=== PATIENT | male | born 1980 | race Caucasian/White ===

== ENCOUNTER 2017-09-03 08:42 | Emergency (ER) | payer BC ==
[2017-09-03 08:46] VITALS: PULSE 84; RESP 16; TEMP 97.6
--- NOTE | 2017-09-03 08:54 | ED ---
General Adult HPI - General Chief complaint: ENT Stated complaint: Swollen neck Time Seen by Provider: 09/03/17 08:47 Source: patient, RN notes reviewed Mode of arrival: ambulatory Limitations: no limitations - History of Present Illness Initial comments: 37-year-old male presents to the emergency department with a chief complaint of right-sided lymph node swelling. He states it started last night. He became concerned. He states is very tender lymph node on the right. He has had a very recent cough cold runny nose like symptoms. No high fevers. No difficulty breathing. No difficulty swallowing. Patient states she was concerned due to the pain she thought that he should be seen. There is been no nausea vomiting. Patient states is not currently having any other symptoms at this time.Patient denies any recent fever, chills, shortness of breath, chest pain, back pain, abdominal pain, nausea vomiting, numbness or tingling, dysuria or hematuria, constipation or diarrhea, headaches or visual changes, or any other current symptoms. - Related Data Previous Rx's Medication Instructions Recorded Azithromycin [Zithromax] 250 mg PO DIRECTED #6 tab 09/03/17 Ibuprofen [Motrin] 600 mg PO Q6HR PRN #20 tab 09/03/17 Allergies Allergy/AdvReac Type Severity Reaction Status Date / Time Penicillins Allergy Rash/Hives Verified 09/03/17 08:46 Review of Systems ROS Statement: Those systems with pertinent positive or pertinent negative responses have been documented in the HPI. ROS Other: All systems not noted in ROS Statement are negative. Past Medical History Past Medical History: No Reported History History of Any Multi-Drug Resistant Organisms: None Reported Past Surgical History: Orthopedic Surgery Additional Past Surgical History / Comment(s): knee Past Psychological History: No Psychological Hx Reported Smoking Status: Never smoker Past Alcohol Use History: Rare Past Drug Use History: None Reported General Exam - General Exam Comments Initial Comments: General exam: Alert, active, comfortable in no apparent distress Head: Normocephalic Eyes: Normal reaction of pupils, equal size, normal range of extraocular motion Ears: normal external ear canals, pink tympanic membranes with normal cone of light Nose: clear with pink turbinates Throat: no erythema or exudates with normal sized tonsils Neck: no masses, no nuchal rigidity, some unknown to the right anterior cervical. Chest: no chest wall deformity Lungs: equal air entry with no crackles or wheeze CVS: S1 and S2 normal with no audible mumurs, regular rhythm Abdomen: no hepatosplenomegaly, normal bowel sounds, no guarding or rigidity Spine: no scoliosis or deformity Skin: no rashes Neurological: No focal deficits, tone is normal in all 4 extremities Limitations: no limitations Course Vital Signs 09/03/17 08:43 Temperature 97.6 F Pulse Rate 84 Respiratory 16 Rate Blood Pressure 155/101 O2 Sat by Pulse 96 Oximetry Medical Decision Making - Medical Decision Making 37-year-old male presents for tender swollen lymphadenopathy. At this time the patient was on antibiotics. We did discuss follow-up we discussed return parameters all questions. Patient family stated they understood and they are in agreement. All questions have been answered. This time they will be discharged. Disposition Clinical Impression: Anterior cervical lymphadenopathy Disposition: HOME SELF-CARE Condition: Stable Instructions: Lymphadenopathy (ED) Additional Instructions: Please use medication as discussed. Please follow up with family doctor if symptoms have not improved over the next two days. Please return to the emergency room if your symptoms increase or worsen or for any other concerns. Prescriptions: Azithromycin [Zithromax] 250 mg PO DIRECTED #6 tab Ibuprofen [Motrin] 600 mg PO Q6HR PRN #20 tab PRN Reason: Pain Referrals: [facility],Clinic [Primary Care Provider] - 1-2 days Time of Disposition: 08:53
[2017-09-03 09:09] VITALS: BP 149/92
== END 2017-09-03 09:09 | disposition home or self-care (01) ==
LOC: EC 08:42
DX: R59.0 Localized enlarged lymph nodes (principal); Z88.0 Allergy status to penicillin
CPT/HCPCS: 99283

== ENCOUNTER 2018-09-26 18:09 | Emergency (ER) | payer BC ==
[2018-09-26 18:14] VITALS: TEMP 98
[2018-09-26] MEDS ORDERED: hydrALAZINE HCL 20 MG/ML 1 ML VIAL IVP STA (18:33)
--- NOTE | 2018-09-26 18:37 | ED ---
General Adult HPI - General Chief complaint: Recheck/Abnormal Lab/Rx Stated complaint: High BP Time Seen by Provider: 09/26/18 18:10 Source: patient, RN notes reviewed Mode of arrival: ambulatory Limitations: no limitations - History of Present Illness Initial comments: This is a 38-year-old male presents emergency Department complaining that his blood pressures been high in the last couple of days. Patient states she was recently diagnosed with high blood pressure and started on metoprolol. Patient states he takes his blood pressure or Reglan over the last few days it has been elevated. Patient states on a couple of occasions when it was elevated he noticed some facial flushing but he had no headache no blurred vision. Patient denies any chest pain palpitations difficulty breathing first breath. Patient states the more he takes it more anxious he gets because he has a history of anxiety's on no medications for that. Patient denies any recent fever chills or cough. Patient denies any excessive coffee intake. - Related Data Home Medications Medication Instructions Recorded Confirmed Metoprolol Tartrate 25 mg PO BID 09/26/18 09/26/18 Previous Rx's Medication Instructions Recorded ALPRAZolam [Xanax] 0.25 mg PO BID PRN 3 Days #6 tab 09/26/18 Allergies Allergy/AdvReac Type Severity Reaction Status Date / Time Penicillins Allergy Rash/Hives Verified 09/26/18 18:35 Review of Systems ROS Statement: Those systems with pertinent positive or pertinent negative responses have been documented in the HPI. ROS Other: All systems not noted in ROS Statement are negative. Past Medical History Past Medical History: No Reported History History of Any Multi-Drug Resistant Organisms: None Reported Past Surgical History: Orthopedic Surgery Additional Past Surgical History / Comment(s): knee Past Psychological History: No Psychological Hx Reported Smoking Status: Never smoker Past Alcohol Use History: Rare Past Drug Use History: None Reported General Exam - General Exam Comments Initial Comments: GENERAL: Patient is well-developed and well-nourished. Patient is nontoxic and well- hydrated and is in mild distress. ENT: Neck is soft and supple. No significant lymphadenopathy is noted. Oropharynx is clear. Moist mucous membranes. Neck has full range of motion without el iciting any pain. EYES: The sclera were anicteric and conjunctiva were pink and moist. Extraocular movements were intact and pupils were equal round and reactive to light. Eyelids were unremarkable. PULMONARY: Unlabored respirations. Good breath sounds bilaterally. No audible rales rhonchi or wheezing was noted. CARDIOVASCULAR: There is a regular rate and rhythm without any murmurs gallops or rubs. ABDOMEN: Soft and nontender with normal bowel sounds. No palpable organomegaly was not ed. There is no palpable pulsatile mass. SKIN: Skin is clear with no lesions or rashes and otherwise unremarkable. NEUROLOGIC: Patient is alert and oriented x3. Cranial nerves II through XII are grossly intact. Motor and sensory are also intact. Normal speech, volume and content. Symmetrical smile. MUSCULOSKELETAL: Normal extremities with adequate strength and full range of motion. No lower extremity swelling or edema. No calf tenderness. LYMPHATICS: No significant lymphadenopathy is noted PSYCHIATRIC: Normal psychiatric evaluation. Limitations: no limitations Course Vital Signs 09/26/18 09/26/18 09/26/18 18:12 18:56 19:41 Temperature 98 F Pulse Rate 84 83 Respiratory 18 16 Rate Blood Pressure 173/104 150/96 142/93 O2 Sat by Pulse 97 Oximetry Medical Decision Making - Medical Decision Making EKG shows normal sinus rhythm at 83 bpm TX interval 160 QRS 92 QT interval 386 QTC is 453 per patient's EKG shows no ST segment elevation or depression. Her patient was given hydralazine. Pressure down and 1 of Ativan because he states he was very anxious. - Lab Data Result diagrams: 09/26/18 18:38 09/26/18 18:38 Lab Results 09/26/18 09/26/18 Range/Units 18:38 18:38 WBC 8.4 (3.8-10.6) k/uL RBC 5.29 (4.30-5.90) m/uL Hgb 15.8 (13.0-17.5) gm/dL Hct 46.5 (39.0-53.0) % MCV 87.8 (80.0-100.0) fL MCH 29.9 (25.0-35.0) pg MCHC 34.0 (31.0-37.0) g/dL RDW 12.7 (11.5-15.5) % Plt Count 236 (150-450) k/uL Neutrophils % 50 % Lymphocytes % 38 % Monocytes % 6 % Eosinophils % 4 % Basophils % 1 % Neutrophils # 4.2 (1.3-7.7) k/uL Lymphocytes # 3.1 (1.0-4.8) k/uL Monocytes # 0.5 (0-1.0) k/uL Eosinophils # 0.3 (0-0.7) k/uL Basophils # 0.1 (0-0.2) k/uL Sodium 140 (137-145) mmol/L Potassium 3.8 (3.5-5.1) mmol/L Chloride 106 (98-107) mmol/L Carbon Dioxide 24 (22-30) mmol/L Anion Gap 10 mmol/L BUN 23 H (9-20) mg/dL Creatinine 0.94 (0.66-1.25) mg/dL Est GFR (CKD-EPI)AfAm >90 (>60 ml/min/1.73 sqM) Est GFR (CKD-EPI)NonAf >90 (>60 ml/min/1.73 sqM) Glucose 89 (74-99) mg/dL Calcium 10.3 H (8.4-10.2) mg/dL Total Bilirubin 0.6 (0.2-1.3) mg/dL AST 30 (17-59) U/L ALT 54 (21-72) U/L Alkaline Phosphatase 64 (38-126) U/L Total Protein 8.0 (6.3-8.2) g/dL Albumin 4.6 (3.5-5.0) g/dL Disposition Clinical Impression: Essential hypertension Disposition: HOME SELF-CARE Condition: Good Instructions (If sedation given, give patient instructions): Hypertension (ED) Additional Instructions: Patient should increase his metoprolol to one and a half pills twice a day Prescriptions: ALPRAZolam [Xanax] 0.25 mg PO BID PRN 3 Days #6 tab PRN Reason: Anxiety Is patient prescribed a controlled substance at d/c from ED?: No Referrals: [facility],Clinic [Primary Care Provider] - 1-2 days Time of Disposition: 19:34
[2018-09-26] MEDS ORDERED: LORazepam 2 MG/ML INJ IV STA (18:39)
[2018-09-26 18:48] LABS: Basophils # (A) 0.1 k/uL (0-0.2); Basophils % (A) 1 %; Eosinophils # (A) 0.3 k/uL (0-0.7); Eosinophils % (A) 4 %; HCT 46.5 % (39.0-53.0); HGB 15.8 gm/dL (13.0-17.5); Lymphocytes # (A) 3.1 k/uL (1.0-4.8); Lymphocytes % (A) 38 %; MCH 29.9 pg (25.0-35.0); MCV 87.8 fL (80.0-100.0); Mean Platelet Volume 7.7; Monocytes # (A) 0.5 k/uL (0-1.0); Monocytes % (A) 6 %; Neutrophils # (A) 4.2 k/uL (1.3-7.7); Neutrophils % (A) 50 %; Platelet Count 236 k/uL (150-450); RBC 5.29 m/uL (4.30-5.90); RDW 12.7 % (11.5-15.5); WBC 8.4 k/uL (3.8-10.6)
[2018-09-26 18:59] LABS: ALT 54 U/L (21-72); AST 30 U/L (17-59); Albumin 4.6 g/dL (3.5-5.0); Alkaline Phosphatase 64 U/L (38-126); Anion Gap 10 mmol/L; Blood Urea Nitrogen 23 mg/dL (9-20); Calcium 10.3 mg/dL (8.4-10.2); Carbon Dioxide 24 mmol/L (22-30); Chloride 106 mmol/L (98-107); Glucose 89 mg/dL (74-99); Potassium 3.8 mmol/L (3.5-5.1); Sodium 140 mmol/L (137-145); Total Bilirubin 0.6 mg/dL (0.2-1.3)
[2018-09-26 19:41] VITALS: BP 142/93; PULSE 83; RESP 16
== END 2018-09-26 20:10 | disposition home or self-care (01) ==
LOC: EC 18:09
DX: I10 Essential (primary) hypertension (principal); Z79.899 Other long term (current) drug therapy; Z88.0 Allergy status to penicillin
CPT/HCPCS: 36415; 80053; 85025; 93005; 96374; 96375; 99283

== ENCOUNTER 2019-08-17 17:22 | Inpatient (IN) | payer BC ==
[2019-08-17] MEDS ORDERED: ONDANSETRON 4 MG/2 ML VIAL IVP STA (17:36)
[2019-08-17] MEDS ORDERED: SODIUM CHLORIDE 0.9% 1,000 ML IV STA ×2 (17:36→19:17)
--- NOTE | 2019-08-17 18:37 | ED ---
General Adult HPI - General Chief complaint: Nausea/Vomiting/Diarrhea Stated complaint: poss dehydration Time Seen by Provider: 08/17/19 17:36 Source: patient Mode of arrival: ambulatory Limitations: no limitations - History of Present Illness Initial comments: Dictation was produced using [employer] dictation software. please excuse any grammatical, word or spelling errors. Chief Complaint: 38-year-old male presents with 2 days of nausea vomiting and diarrhea. History of Present Illness: 38-year-old male he has past medical history of hypertension. Patient reports that since yesterday's been having diarrhea. Patient has had too many episodes to count. States that after eating [employer] he began having symptoms. He did have an episode of nonbilious nonbloody emesis. He states that his diarrhea is nonbilious not bloody. Patient also complains of some mild left-sided flank pain. States the pain is shifting from the left to the right flank. Patient also has been having constitutional symptoms. There has been cold symptoms that affected his and child. Patient is complaining of some mild left lower quadrant abdominal tenderness. He has no history of diverticulitis. He has no other history of surgery except for knee surgery. The ROS documented in this emergency department record has been reviewed and confirmed by me. Those systems with pertinent positive or negative responses have been documented in the HPI. All other systems are other negative and/or noncontributory. PHYSICAL EXAM: General Impression: Alert and oriented x3, not in acute distress HEENT: Normocephalic atraumatic, extra-ocular movements intact, pupils equal and reactive to light bilaterally, mucous membranes moist. Cardiovascular: Heart regular rate and rhythm, S1&S2 audible, no murmurs, rubs or gallops Chest: Lungs clear to auscultation bilaterally, no rhonchi, no wheeze, no rales Abdomen: Mild tenderness to the left lower quadrant Musculoskeletal: Pulses present and equal in all extremities, no peripheral edema Motor: no focal deficits noted Neurological: CN II-XII grossly intact, no focal motor or sensory deficits noted Skin: Intact with no visualized rashes Psych: Normal affect and mood ED course: 38-year-old male presents with enteritis symptoms and fever. All signs upon arrival shows temperature 100.3, heart rate of 110, worse vital signs within acceptable limits. Patient has diarrhea however has no abdominal cramping. He has some mild flank pain that sometimes certainty back pain. He is basically vague back symptoms. Laboratory evaluation obtained. CBC unremarkable. No leukocytosis. Metabolic panel shows mild acidosis and prerenal azotemia. Urinalysis is negative. Influenza test is negative. CRP is elevated at 34.1 however his ESR is 3. Computed tomography scan of the abdomen and pelvis was obtained showing no acute processes. Chest x-ray is nonacute. Patient does not have any overwhelming localizing symptoms. This point is not entirely clear what's causing patient's symptoms and vital signs. Patient treated with broad-spectrum antibiotics. Patient be admitted with consultation from infectious disease. - Related Data Home Medications Medication Instructions Recorded Confirmed Metoprolol Tartrate 25 mg PO BID 09/26/18 08/17/19 Lisinopril-Hctz 20-12.5 mg 1 tablet PO DAILY 08/17/19 08/17/19 [Zestoretic 20-12.5] lamoTRIgine [lamoTRIgine ER] 50 mg PO HS 08/17/19 08/17/19 Previous Rx's Medication Instructions Recorded ALPRAZolam [Xanax] 0.25 mg PO BID PRN 3 Days #6 tab 09/26/18 Allergies Allergy/AdvReac Type Severity Reaction Status Date / Time Penicillins Allergy Rash/Hives Verified 08/17/19 17:28 Review of Systems ROS Statement: Those systems with pertinent positive or pertinent negative responses have been documented in the HPI. ROS Other: All systems not noted in ROS Statement are negative. Past Medical History Past Medical History: Hypertension History of Any Multi-Drug Resistant Organisms: None Reported Past Surgical History: Orthopedic Surgery Additional Past Surgical History / Comment(s): knee Past Psychological History: PTSD Smoking Status: Never smoker Past Alcohol Use History: Occasional Past Drug Use History: None Reported General Exam Limitations: no limitations Course Vital Signs 08/17/19 08/17/19 08/17/19 17:27 18:23 19:19 Temperature 100.3 F H 102.1 F H Pulse Rate 128 H 110 H 110 H Respiratory 18 16 17 Rate Blood Pressure 130/88 133/96 132/89 O2 Sat by Pulse 96 98 96 Oximetry 08/17/19 08/17/19 20:16 21:31 Temperature 101.2 F H Pulse Rate 103 H 105 H Respiratory 18 18 Rate Blood Pressure 122/75 119/74 O2 Sat by Pulse 95 95 Oximetry Medical Decision Making - Lab Data Result diagrams: 08/17/19 18:05 08/17/19 18:05 Lab Results 08/17/19 08/17/19 08/17/19 Range/Units 18:05 18:05 18:05 WBC 9.6 (3.8-10.6) k/uL RBC 5.68 (4.30-5.90) m/uL Hgb 17.2 (13.0-17.5) gm/dL Hct 50.2 (39.0-53.0) % MCV 88.4 (80.0-100.0) fL MCH 30.2 (25.0-35.0) pg MCHC 34.2 (31.0-37.0) g/dL RDW 12.6 (11.5-15.5) % Plt Count 233 (150-450) k/uL Neutrophils % 86 % Lymphocytes % 7 % Monocytes % 4 % Eosinophils % 1 % Basophils % 1 % Neutrophils # 8.3 H (1.3-7.7) k/uL Lymphocytes # 0.7 L (1.0-4.8) k/uL Monocytes # 0.4 (0-1.0) k/uL Eosinophils # 0.1 (0-0.7) k/uL Basophils # 0.1 (0-0.2) k/uL ESR (0-15) mm/hr Sodium 136 L (137-145) mmol/L Potassium 4.1 (3.5-5.1) mmol/L Chloride 104 (98-107) mmol/L Carbon Dioxide 21 L (22-30) mmol/L Anion Gap 11 mmol/L BUN 25 H (9-20) mg/dL Creatinine 1.07 (0.66-1.25) mg/dL Est GFR (CKD-EPI)AfAm >90 (>60 ml/min/1.73 sqM) Est GFR (CKD-EPI)NonAf 90 (>60 ml/min/1.73 sqM) Glucose 135 H (74-99) mg/dL Calcium 9.6 (8.4-10.2) mg/dL Total Bilirubin 0.7 (0.2-1.3) mg/dL AST 30 (17-59) U/L ALT 34 (4-49) U/L Alkaline Phosphatase 57 (38-126) U/L C-Reactive Protein (<10.0) mg/L Total Protein 8.1 (6.3-8.2) g/dL Albumin 4.8 (3.5-5.0) g/dL Lipase (23-300) U/L Urine Color Urine Appearance (Clear) Urine pH (5.0-8.0) Ur Specific Union (1.001-1.035) Urine Protein (Negative) Urine Glucose (UA) (Negative) Urine Ketones (Negative) Urine Blood (Negative) Urine Nitrite (Negative) Urine Bilirubin (Negative) Urine Urobilinogen (<2.0) mg/dL Ur Leukocyte Esterase (Negative) Urine WBC (0-5) /hpf Ur Squamous Epith Cells (0-4) /hpf Urine Mucus (None) /hpf Influenza Type A RNA Not Detected (Not Detectd) Influenza Type B (PCR) Not Detected (Not Detectd) 08/17/19 08/17/19 08/17/19 Range/Units 18:05 18:05 21:25 WBC (3.8-10.6) k/uL RBC (4.30-5.90) m/uL Hgb (13.0-17.5) gm/dL Hct (39.0-53.0) % MCV (80.0-100.0) fL MCH (25.0-35.0) pg MCHC (31.0-37.0) g/dL RDW (11.5-15.5) % Plt Count (150-450) k/uL Neutrophils % % Lymphocytes % % Monocytes % % Eosinophils % % Basophils % % Neutrophils # (1.3-7.7) k/uL Lymphocytes # (1.0-4.8) k/uL Monocytes # (0-1.0) k/uL Eosinophils # (0-0.7) k/uL Basophils # (0-0.2) k/uL ESR 3 (0-15) mm/hr Sodium (137-145) mmol/L Potassium (3.5-5.1) mmol/L Chloride (98-107) mmol/L Carbon Dioxide (22-30) mmol/L Anion Gap mmol/L BUN (9-20) mg/dL Creatinine (0.66-1.25) mg/dL Est GFR (CKD-EPI)AfAm (>60 ml/min/1.73 sqM) Est GFR (CKD-EPI)NonAf (>60 ml/min/1.73 sqM) Glucose (74-99) mg/dL Calcium (8.4-10.2) mg/dL Total Bilirubin (0.2-1.3) mg/dL AST (17-59) U/L ALT (4-49) U/L Alkaline Phosphatase (38-126) U/L C-Reactive Protein 34.1 H (<10.0) mg/L Total Protein (6.3-8.2) g/dL Albumin (3.5-5.0) g/dL Lipase 63 (23-300) U/L Urine Color Yellow Urine Appearance Clear (Clear) Urine pH 6.0 (5.0-8.0) Ur Specific [place] 1.038 H (1.001-1.035) Urine Protein 1+ H (Negative) Urine Glucose (UA) Negative (Negative) Urine Ketones Negative (Negative) Urine Blood Negative (Negative) Urine Nitrite Negative (Negative) Urine Bilirubin Negative (Negative) Urine Urobilinogen <2.0 (<2.0) mg/dL Ur Leukocyte Esterase Negative (Negative) Urine WBC <1 (0-5) /hpf Ur Squamous Epith Cells <1 (0-4) /hpf Urine Mucus Many H (None) /hpf Influenza Type A RNA (Not Detectd) Influenza Type B (PCR) (Not Detectd) Disposition Clinical Impression: SIRS (systemic inflammatory response syndrome) Disposition: ADMITTED IP TO THIS [facility] Condition: Fair Referrals: Nazario Wilkes DO [Primary Care Provider] - 1-2 days Decision Time: 23:22
[2019-08-17 18:53] LABS: Basophils # (A) 0.1 k/uL (0-0.2); Basophils % (A) 1 %; Eosinophils # (A) 0.1 k/uL (0-0.7); Eosinophils % (A) 1 %; HCT 50.2 % (39.0-53.0); HGB 17.2 gm/dL (13.0-17.5); Lymphocytes # (A) 0.7 k/uL (1.0-4.8); Lymphocytes % (A) 7 %; MCH 30.2 pg (25.0-35.0); MCHC 34.2 g/dL (31.0-37.0); MCV 88.4 fL (80.0-100.0); Mean Platelet Volume 8.7; Monocytes # (A) 0.4 k/uL (0-1.0); Monocytes % (A) 4 %; Neutrophils # (A) 8.3 k/uL (1.3-7.7); Neutrophils % (A) 86 %; Platelet Count 233 k/uL (150-450); RBC 5.68 m/uL (4.30-5.90); RDW 12.6 % (11.5-15.5); WBC 9.6 k/uL (3.8-10.6)
--- NOTE | 2019-08-17 19:00 | CT ---
EXAMINATION TYPE: CT abdomen pelvis w con DATE OF EXAM: 08/17/2019 COMPARISON: None HISTORY: Left sided abdominal pain, fever and diarrhea. CT DLP: 1911.8 mGycm Automated exposure control for dose reduction was used. CONTRAST: Performed with IV Contrast, patient injected with 100ml mL of Isovue 300. Multiple axial sections were obtained from the diaphragm to the floor the pelvis with intravenous con trast Lung bases are clear. There is no pleural effusion. Heart size is normal. There is no pericardial eff usion. Stomach is intact. Liver spleen pancreas gallbladder appear normal. Bile ducts are not dilated . There is no adrenal mass. Kidneys show satisfactory contrast opacification. There is no hydronephrosi s. There is no retroperitoneal adenopathy. Bladder distends smoothly. There is no free fluid in the p savita. There is no inguinal hernia. The ureters are not dilated. Appendix is posterior and medial and appears normal. There is no mesenteric edema. There is no ascites or free air. There is no sign of a bowel obstructio n. The lumbar vertebra have normal alignment. Posterior elements are intact. Bony pelvis is intact. Hip joints appear normal. Sacroiliac joints are normal. IMPRESSION: Normal appendix. No evidence of renal stone or obstruction. I do not see a cause for left-sided pain.
[2019-08-17 19:07] LABS: ALT 34 U/L (4-49); AST 30 U/L (17-59); African American GFR (CKD) >90 (>60 ml/min/1.73 sqM); Albumin 4.8 g/dL (3.5-5.0); Alkaline Phosphatase 57 U/L (38-126); Anion Gap 11 mmol/L; Blood Urea Nitrogen 25 mg/dL (9-20); Calcium 9.6 mg/dL (8.4-10.2); Carbon Dioxide 21 mmol/L (22-30); Chloride 104 mmol/L (98-107); Glucose 135 mg/dL (74-99); Non-African American GFR(CKD) 90 (>60 ml/min/1.73 sqM); Potassium 4.1 mmol/L (3.5-5.1); Sodium 136 mmol/L (137-145); Total Bilirubin 0.7 mg/dL (0.2-1.3); Total Protein 8.1 g/dL (6.3-8.2)
[2019-08-17] MEDS ORDERED: KETOROLAC 30 MG/ML 1 ML VIAL IVP STA (19:09)
[2019-08-17 19:27] LABS: Appearance,Urine Clear (Clear); Bilirubin,Urine Negative (Negative); Blood,Urine Negative (Negative); Color,Urine Yellow; Glucose,Urine (UA) Negative (Negative); Ketones,Urine Negative (Negative); Leukocyte Esterase,Urine Negative (Negative); Mucus,Urine Many /hpf; Nitrite,Urine Negative (Negative); Protein,Urine 1+ (Negative); Specific Gravity,Urine 1.038 (1.001-1.035); Squamous Epithelial Cell,Urine <1 /hpf (0-4); Urobilinogen,Urine <2.0 mg/dL (<2.0); WBC,Urine <1 /hpf (0-5)
[2019-08-17] MEDS ORDERED: VANCOMYCIN IV PER PHARMACY 1 EACH MISC MISCELLANE PRN (19:55)
[2019-08-17] MEDS ORDERED: CEFEPIME 2 GM in SODIUM CHLORIDE 0.9% 100 ML IVPB STA (19:55)
--- NOTE | 2019-08-17 20:03 | XR ---
EXAMINATION TYPE: XR chest 2V DATE OF EXAM: 08/17/2019 COMPARISON: NONE HISTORY: Fever TECHNIQUE: FINDINGS: Heart and mediastinum are normal. Lungs are clear of infiltrate. There is no pleural effusi on. There are small calcified granulomata in the left lower lobe. IMPRESSION: No cardiopulmonary disease. Normal heart.
[2019-08-17] MEDS ORDERED: lamoTRIgine 25 MG TAB PO ONE (20:07)
[2019-08-17] MEDS ORDERED: METOPROLOL TARTRATE 25 MG TAB PO STA (20:08)
[2019-08-17] MEDS ORDERED: VANCOMYCIN 2,250 MG in SODIUM CHLORIDE 0.9% 500 ML 500 ML IVPB ONE (20:15)
[2019-08-17 20:25] LABS: C Reactive Protein 34.1 mg/L (<10.0)
[2019-08-17] MEDS ORDERED: metroNIDAZOLE-NS PMX 500 MG in SALINE 1 100ML.BAG IVPB STA (20:56)
[2019-08-17] MEDS ORDERED: ACETAMINOPHEN TAB 500 MG TAB PO STA (22:37)
[2019-08-17] MEDS ORDERED: NALOXONE 0.4 MG/ML 1 ML VIAL IV PRN (23:22)
[2019-08-17] MEDS ORDERED: ONDANSETRON 4 MG/2 ML VIAL IVP PRN (23:22)
[2019-08-17] MEDS ORDERED: ACETAMINOPHEN TAB 325 MG TAB PO PRN (23:22)
[2019-08-18] MEDS: SODIUM CHLORIDE 0.9% 1,000 ML IV SCH ×2 (00:14→10:44)
[2019-08-18] MEDS ORDERED: VANCOMYCIN 2,000 MG in SODIUM CHLORIDE 0.9% 500 ML 500 ML IVPB SCH (09:00)
[2019-08-18] MEDS ORDERED: LISINOPRIL-HCTZ 20-12.5 MG 1 EACH TAB PO SCH (09:00)
[2019-08-18 12:50] VITALS: BP 127/73; PULSE 78; RESP 17; TEMP 98
[2019-08-18] MEDS ORDERED: metroNIDAZOLE 500 MG TAB PO SCH (16:00)
[2019-08-18] MEDS ORDERED: ALPRAZolam 0.25 MG TAB PO PRN (17:01)
--- NOTE | 2019-08-18 17:12 | P.HPIM ---
History of Present Illness H&P Date: 08/18/19 Chief Complaint: Vomiting diarrhea History of presenting complaint: This is a pleasant [address] Wilkes. Abdi eaten at [employer] to double burgers and 1 back chicken. Later that evening he started getting uncomfortable." Diarrhea. Subsequently went the next day he did quite a bit of vomiting and nausea. Decided to come to the ER. Initially had fever and chills. Given IV fluids admitted for the same. This morning feeling a bit better. Did tolerate a light breakfast. No further diarrhea. and the family was sick. Abdominal pain is greatly improved. Review of systems: GEN.: Tired EYES: None HEENT: None NECK: None RESPIRATORY: None CARDIOVASCULAR: None GASTROINTESTINAL: As above GENITOURINARY: None MUSCULOSKELETAL: None LYMPHATICS: None HEMATOLOGICAL: None PSYCHIATRY: None NEUROLOGICAL: None Past medical history to include: Hypertension, PTSD Social history: *Smoke alcohol occasionally, , works as a printing machinist Family history: Reviewed, noncontributory to presentation Physical examination: VITAL SIGNS: [100.3, 128, 18, 130/88, 96% room air GENERAL: BMI 34.6, sitting up in bed, awake. EYES: Pupils equal. Conjunctiva normal. HEENT: External appearance of nose and ears normal, oral cavity grossly normal. NECK: JVD not raised; masses not palpable. HEART: First and second heart sounds are normal; no edema. LUNGS: Respiratory rate normal; clear to auscultation. ABDOMEN: Soft, nontender, liver spleen not palpable, no masses palpable. PSYCH: Alert and oriented x3; mood and affect normal. NEUROLOGICAL: Cranial nerves grossly intact; no facial asymmetry, power and sensation grossly intact. LYMPHATICS: No lymph nodes palpable in the axilla and neck INVESTIGATIONS, reviewed in the clinical context: White count 9.6-year-old woman 7.2 potassium 4.1 BUN 25 creatinine 1.07 Influenza A and B both not detected Chest x-ray film-clear Computed tomography scan of the abdomen and pelvis-unremarkable Assessment: -Acute bacterial severe gastroenteritis, causing sepsis, POA, likely from food poisoning -Sepsis from above -Essential hypertension -PTSD Plan: Patient this morning is feeling much better. Patient from the ER was started on Flagyl and vancomycin. Also received a dose of cefepime. Patient will pr obably be better served with quinolones and Flagyl orally clinically looking better. Diet is being advanced. Infectious disease, Dr. benson was consulted. Past Medical History Past Medical History: Hypertension History of Any Multi-Drug Resistant Organisms: None Reported Past Surgical History: Orthopedic Surgery Additional Past Surgical History / Comment(s): left knee 2001 Past Anesthesia/Blood Transfusion Reactions: No Reported Reaction Past Psychological History: PTSD Smoking Status: Never smoker Past Alcohol Use History: Occasional Past Drug Use History: None Reported Medications and Allergies Home Medications Medication Instructions Recorded Confirmed Type Metoprolol Tartrate 37.5 mg PO BID 09/26/18 08/17/19 History ALPRAZolam [Xanax] 0.25 mg PO DAILY PRN 08/17/19 08/17/19 History Acetaminophen Tab [Tylenol] 1,000 mg PO TID PRN 08/17/19 08/17/19 History Lisinopril-Hctz 20-12.5 mg 1 tablet PO DAILY 08/17/19 08/17/19 History [Zestoretic 20-12.5] lamoTRIgine [lamoTRIgine ER] 50 mg PO HS 08/17/19 08/17/19 History Ciprofloxacin HCl [Cipro] 500 mg PO Q12H 3 Days #6 tab 08/18/19 Rx metroNIDAZOLE [Flagyl] 500 mg PO Q8HR #10 tab 08/18/19 Rx Allergies Allergy/AdvReac Type Severity Reaction Status Date / Time Penicillins Allergy Rash/Hives Verified 08/17/19 23:28 Physical Exam Vitals: Vital Signs Temp Pulse Pulse Resp BP BP Pulse Ox 08/18/19 05:05 98.3 F 82 16 105/54 95 08/18/19 02:00 98.7 F 95 18 115/62 94 L 08/18/19 00:50 101.1 F H 100 18 110/70 99 08/18/19 00:00 102.1 F H 90 18 116/70 99 08/17/19 21:31 101.2 F H 105 H 18 119/74 95 08/17/19 20:16 103 H 18 122/75 95 08/17/19 19:19 102.1 F H 110 H 17 132/89 96 08/17/19 18:23 110 H 16 133/96 98 08/17/19 17:27 100.3 F H 128 H 18 130/88 96 Intake and Output 08/17/19 08/18/19 08/18/19 22:59 06:59 14:59 Intake Total 590 Balance 590 Intake: Oral 590 Other: Voiding Method Toilet Toilet # Voids 1 Weight 115.666 kg 115.666 kg Results CBC & Chem 7: 08/17/19 18:05 08/17/19 18:05 Labs: Abnormal Lab Results - Last 24 Hours (Table) 08/17/19 08/17/19 08/17/19 Range/Units 18:05 18:05 18:05 Neutrophils # 8.3 H (1.3-7.7) k/uL Lymphocytes # 0.7 L (1.0-4.8) k/uL Sodium 136 L (137-145) mmol/L Carbon Dioxide 21 L (22-30) mmol/L BUN 25 H (9-20) mg/dL Glucose 135 H (74-99) mg/dL C-Reactive Protein (<10.0) mg/L Ur Specific [place] 1.038 H (1.001-1.035) Urine Protein 1+ H (Negative) Urine Mucus Many H (None) /hpf 08/17/19 Range/Units 18:05 Neutrophils # (1.3-7.7) k/uL Lymphocytes # (1.0-4.8) k/uL Sodium (137-145) mmol/L Carbon Dioxide (22-30) mmol/L BUN (9-20) mg/dL Glucose (74-99) mg/dL C-Reactive Protein 34.1 H (<10.0) mg/L Ur Specific [place] (1.001-1.035) Urine Protein (Negative) Urine Mucus (None) /hpf Thrombosis Risk Factor Assmnt - Choose All That Apply Any of the Below Risk Factors Present?: Yes Each Factor Represents 1 point: Obesity (BMI >25) Other Risk Factors: No Other congenital or acquired thrombophilia - If yes, enter type in comment: No Thrombosis Risk Factor Assessment Total Risk Factor Score: 1 Thrombosis Risk Factor Assessment Level: Low Risk
--- NOTE | 2019-08-18 17:14 | P.DS ---
Providers Date of admission: 08/17/19 23:24 Expected date of discharge: 08/18/19 Attending physician: Reed Sosa Consults: 08/17/19 23:26 Consult Physician Routine Consulting Provider: Albert Crespo Consult Reason/Comments: sirs, ro sepsis Do you want consulting provider notified?: Yes Primary care physician: Nazario Wilkes [facility] Course: Chief Complaint: Vomiting diarrhea History of presenting complaint: This is a pleasant [address] Wilkes. Abdi eaten at [employer] to double burgers and 1 back chicken. Later that evening he started getting uncomfortable." Diarrhea. Subsequently went the next day he did quite a bit of vomiting and nausea. Decided to come to the ER. Initially had fever and chills. Given IV fluids admitted for the same. This morning feeling a bit better. Did tolerate a light breakfast. No further diarrhea. and the family was sick. Abdominal pain is greatly improved. Admitted with acute bacterial food poisoning covering acute severe gastroenteritis causing sepsis. Responded well to IV cefepime Flagyl vancomycin. Doing much better this morning. Discussed with ID. Patient can be discharged home. Tolerating a soft diet. Up and about. No asymptomatic. Consultation: Dr. crespo from ID Physical examination: VITAL SIGNS: 98, 78, 17, 127/73, 96% room air GENERAL: BMI 34.6, sitting up in bed, awake. EYES: Pupils equal. Conjunctiva normal. HEENT: External appearance of nose and ears normal, oral cavity grossly normal. NECK: JVD not raised; masses not palpable. HEART: First and second heart sounds are normal; no edema. LUNGS: Respiratory rate normal; clear to auscultation. ABDOMEN: Soft, nontender, liver spleen not palpable, no masses palpable. PSYCH: Alert and oriented x3; mood and affect normal. INVESTIGATIONS, reviewed in the clinical context: White count 9.6-year-old woman 7.2 potassium 4.1 BUN 25 creatinine 1.07 Influenza A and B both not detected Chest x-ray film-clear Computed tomography scan of the abdomen and pelvis-unremarkable Assessment: -Acute bacterial severe gastroenteritis, causing sepsis, POA, likely from food poisoning, improved -Sepsis from above -Essential hypertension -PTSD Disposition: Home Patient Condition at Discharge: Fair Plan - Discharge Summary Discharge Rx Participant: No New Discharge Prescriptions: New Ciprofloxacin HCl [Cipro] 500 mg PO Q12H 3 Days #6 tab metroNIDAZOLE [Flagyl] 500 mg PO Q8HR #10 tab Continue Metoprolol Tartrate 37.5 mg PO BID Lisinopril-Hctz 20-12.5 mg [Zestoretic 20-12.5] 1 tablet PO DAILY lamoTRIgine [lamoTRIgine ER] 50 mg PO HS Acetaminophen Tab [Tylenol] 1,000 mg PO TID PRN PRN Reason: Pain ALPRAZolam [Xanax] 0.25 mg PO DAILY PRN PRN Reason: Anxiety Discharge Medication List Metoprolol Tartrate 37.5 mg PO BID 09/26/18 [History] ALPRAZolam [Xanax] 0.25 mg PO DAILY PRN 08/17/19 [History] Acetaminophen Tab [Tylenol] 1,000 mg PO TID PRN 08/17/19 [History] Lisinopril-Hctz 20-12.5 mg [Zestoretic 20-12.5] 1 tablet PO DAILY 08/17/19 [History] lamoTRIgine [lamoTRIgine ER] 50 mg PO HS 08/17/19 [History] Ciprofloxacin HCl [Cipro] 500 mg PO Q12H 3 Days #6 tab 08/18/19 [Rx] metroNIDAZOLE [Flagyl] 500 mg PO Q8HR #10 tab 08/18/19 [Rx] Follow up Appointment(s)/Referral(s): Nazario Wilkes DO [Primary Care Provider] - 1-2 days (please call the office on Monday to schedule hospital follow-up appointment. Office is currently closed) Patient Instructions/Handouts: Ciprofloxacin (By mouth), Metronidazole (By mouth), Soft Diet (DC), Sepsis (GEN) Activity/Diet/Wound Care/Special Instructions: soft bland diet
[2019-08-18] MEDS ORDERED: METOPROLOL TARTRATE 25 MG TAB PO SCH (21:00)
[2019-08-18] MEDS ORDERED: CIPROFLOXACIN HCL 500 MG TAB PO SCH (21:00)
[2019-08-18] MEDS ORDERED: lamoTRIgine 25 MG TAB PO SCH (21:00)
== END 2019-08-18 16:20 | disposition home or self-care (01) | DRG 872 ==
LOC: EC 17:22 → 5NMEDONC 23:24
PROVIDERS: ADMIT Hospitalist; ATTEND Hospitalist
DX: A41.9 Sepsis, unspecified organism (principal); E87.2 Acidosis; A05.9 Bacterial foodborne intoxication, unspecified; I10 Essential (primary) hypertension; M54.9 Dorsalgia, unspecified; F43.10 Post-traumatic stress disorder, unspecified; Z79.899 Other long term (current) drug therapy; Z88.0 Allergy status to penicillin
CPT/HCPCS: 36415; 71046; 74177; 80053; 81001; 83605; 83690; 84145; 85025; 85652; 86140; 87040; 87045; 87046; 87502; 96361; 96365; 96366; 96367; 96375; 99285

== ENCOUNTER → 2019-12-04 | Outpatient (CLI) | payer BC, OTHER ==
--- NOTE | 2019-12-04 20:36 | ECHOF ---
Referral Reason:R00.2 Palpitations MEASUREMENTS -------- HEIGHT: 182.9 cm WEIGHT: 113.4 kg BP: IVSd: 1.3 cm (0.6 - 1.1) LVIDd: 4.3 cm (3.9 - 5.3) LVPWd: 1.3 cm (0.6 - 1.1) IVSs: 1.6 cm LVIDs: 2.3 cm LVPWs: 1.9 cm RVIDd: 3.1 cm (< 3.3) LAESV Index (A-L): 27.49 ml/m Ao Diam: 3.6 cm (2.0 - 3.7) LA Diam: 3.1 cm (2.7 - 3.8) AV Cusp: 2.9 cm (1.5 - 2.6) EPSS: 0.7 cm MV E Gary: 0.46 m/s MV DecT: 180 ms MV A Gary: 0.49 m/s MV E/A Ratio: 0.94 RAP: 5.00 mmHg RVSP: 14.31 mmHg MV EF SLOPE: 80.73 mm/s (70 - 150) MV EXCURSION: 16.31 mm (> 18.000) TAPSE: 25.97 mm FINDINGS -------- Sinus rhythm. This was a technically good study. The left ventricular size is normal. There is mild concentric left ventricular hypertrophy. Overa ll left ventricular systolic function is normal with, an EF between 55 - 60 %. The diastolic fillin g pattern is normal for the age of the patient 5.15. The right ventricle is normal in size. The right ventricular systolic function is normal. The left atrial size is normal. Normal LA size by volume 22+/-6 ml/m2. The right atrial size is normal. Interatrial and interventricular septum intact. The aortic valve is trileaflet and appears structurally normal. The mitral valve is normal. There is trace mitral regurgitation. The tricuspid valve appears structurally normal. Trace tricuspid regurgitation present. Right rai tricular systolic pressure is normal at < 35 mmHg. Trace/mild (physiologic) pulmonic regurgitation. The aortic root size is normal. Normal inferior vena cava with normal inspiratory collapse consistent with estimated right atrial pre ssure of 5 mmHg. There is no pericardial effusion. CONCLUSIONS -------- 1. Sinus rhythm. 2. This was a technically good study. 3. The left ventricular size is normal. 4. There is mild concentric left ventricular hypertrophy. 5. Overall left ventricular systolic function is normal with, an EF between 55 - 60 %. 6. The diastolic filling pattern is normal for the age of the patient 5.15 7. The right ventricle is normal in size. 8. The right ventricular systolic function is normal. 9. The left atrial size is normal. 10. Normal LA size by volume 22+/-6 ml/m2. 11. The right atrial size is normal. 12. Interatrial and interventricular septum intact. 13. The aortic valve is trileaflet and appears structurally normal. 14. The mitral valve is normal. 15. There is trace mitral regurgitation. 16. The tricuspid valve appears structurally normal. 17. Trace tricuspid regurgitation present. 18. Right ventricular systolic pressure is normal at < 35 mmHg. 19. Trace/mild (physiologic) pulmonic regurgitation. 20. The aortic root size is normal. 21. Normal inferior vena cava with normal inspiratory collapse consistent with estimated right atrial pressure of 5 mmHg. 22. There is no pericardial effusion. [employer] SALES MANAGER: Merly Arana RDCS
== END | disposition home or self-care (01) ==
LOC: RADECHMAIN 08:27
PROVIDERS: ATTEND Family Medicine
DX: I51.7 Cardiomegaly (principal)
CPT/HCPCS: 93306

== ENCOUNTER 2024-11-10 01:57 | Emergency (ER) | payer BC ==
[2024-11-10 02:13] VITALS: RESP 18
--- NOTE | 2024-11-10 02:17 | ED ---
Chest Pain HPI - General Chief Complaint: Chest Pain Stated Complaint: chest tightness Time Seen by Provider: 11/10/24 02:12 Source: patient, RN notes reviewed, old records reviewed Mode of arrival: ambulatory Limitations: no limitations - History of Present Illness Initial Comments: This is a 44-year-old male to the ER for evaluation of chest pain chest pain some shortness of breath symptoms that woke him up from sleep. No fevers no travel history no sick contacts. Patient's symptoms is resolved here in the ER no fevers no shortness of breath no travels or sick contacts Complaint: chest pain -: days(s) Onset: during rest, during exertion Pain Location: substernal, left chest Pain Radiation: LUE Severity: moderate Severity scale (1-10): 4 Quality: tightness Consistency: constant Improves With: nothing Worsens With: nothing Anginal Symptoms: sense of impending doom Other Symptoms: palpitations Treatments Prior to Arrival: none - Related Data Home Medications Medication Instructions Recorded Confirmed Metoprolol Tartrate 37.5 mg PO BID 09/26/18 08/17/19 ALPRAZolam [Xanax] 0.25 mg PO DAILY PRN 08/17/19 08/17/19 Acetaminophen Tab [Tylenol] 1,000 mg PO TID PRN 08/17/19 08/17/19 Lisinopril-Hctz 20-12.5 mg 1 tablet PO DAILY 08/17/19 08/17/19 [Zestoretic 20-12.5] lamoTRIgine [lamoTRIgine ER] 50 mg PO HS 08/17/19 08/17/19 Previous Rx's Medication Instructions Recorded Ciprofloxacin HCl [Cipro] 500 mg PO Q12H 3 Days #6 tab 08/18/19 metroNIDAZOLE [Flagyl] 500 mg PO Q8HR #10 tab 08/18/19 Allergies Allergy/AdvReac Type Severity Reaction Status Date / Time Penicillins Allergy Rash/Hives Verified 11/10/24 02:13 Review of Systems ROS Statement: Those systems with pertinent positive or pertinent negative responses have been documented in the HPI. ROS Other: All systems not noted in ROS Statement are negative. EKG Findings - EKG Comments: EKG Findings:: EKG is sinus 61 VT 181 QRS 115 QTc 450 - EKG Results: EKG: interpreted by [facility] Past Medical History Past Medical History: Hypertension History of Any Multi-Drug Resistant Organisms: None Reported Past Surgical History: Orthopedic Surgery Additional Past Surgical History / Comment(s): left knee 2001 Past Anesthesia/Blood Transfusion Reactions: No Reported Reaction Past Psychological History: Anxiety, PTSD Past Alcohol Use History: Occasional Past Drug Use History: None Reported General Exam Limitations: no limitations General appearance: alert, in no apparent distress Head exam: Present: atraumatic, normocephalic, normal inspection Eye exam: Present: normal appearance, PERRL, EOMI. Absent: scleral icterus, conjunctival injection, periorbital swelling ENT exam: Present: normal exam, mucous membranes moist Neck exam: Present: normal inspection. Absent: tenderness, meningismus, lymphadenopathy Respiratory exam: Present: normal lung sounds bilaterally. Absent: respiratory distress, wheezes, rales, rhonchi, stridor Cardiovascular Exam: Present: regular rate, normal rhythm, normal heart sounds. Absent: systolic murmur, diastolic murmur, rubs, gallop, clicks GI/Abdominal exam: Present: soft, normal bowel sounds. Absent: distended, tenderness, guarding, rebound, rigid Extremities exam: Present: normal inspection, full ROM, normal capillary refill. Absent: tenderness, pedal edema, joint swelling, calf tenderness Back exam: Present: normal inspection Neurological exam: Present: alert, oriented X3, CN II-XII intact Psychiatric exam: Present: normal affect, normal mood Skin exam: Present: warm, dry, intact, normal color. Absent: rash Course Vital Signs 11/10/24 11/10/24 02:08 04:48 Temperature 97.9 F 98.4 F Pulse Rate 68 56 L Respiratory 18 18 Rate Blood Pressure 148/97 118/85 O2 Sat by Pulse 94 L Oximetry - Reevaluation(s) Reevaluation #1: Medical records reviewed Reevaluation #2: Patient's symptoms improved here in the ER no current chest pain Reevaluation #3: Patient informed of results questions answered Reevaluation #4: Was pt. sent in by a medical professional or institution (, PA, DIRECTOR PHARMACEUTICAL, urgent care, hospital, or penitentiary...) When possible be specific @ -no Did you speak to anyone other than the patient for history (EMS, parent, family, police, friend...)? What history was obtained from this source @ -no Did you review nursing and triage notes (agree or disagree)? Why? @ -agree Are old charts reviewed (outside hosp., previous admission, EMS record, old EKG, old radiological studies, urgent care reports/EKG's, penitentiary records)? Report findings @ -yes Differential Diagnosis (chest pain, altered mental status, abdominal pain women, abdominal pain men, vaginal bleeding, weakness, fever, dyspnea, syncope, headache, dizziness, GI bleed, back pain, seizure, CVA, palpatations, mental health, musculoskeletal)? @ -prior EKG interpreted by me (3pts min.). @ -yes X-rays interpreted by me (1pt min.). @ -yes negative for acute disease CT interpreted by me (1pt min.). @ -no U/S interpreted by me (1pt. min.). @ -no What testing was considered but not performed or refused? (CT, X-rays, U/S, labs)? Why? @ -none What meds were considered but not given or refused? Why? @ -none Did you discuss the management of the patient with other professionals (professionals i.e. , PA, DIRECTOR PHARMACEUTICAL, lab, RT, psych nurse, social group worker, filing or registry clerk, teacher, corporate security officer, case specialist)? Give summary @ -no Was smoking cessation discussed for >3mins.? @ -no Was critical care preformed (if so, how long)? @ -no Were there social determinants of health that impacted care today? How? (Homelessness, low income, unemployed, alcoholism, drug addiction, transportation, low edu. Level, literacy, decrease access to med. care, [facility], rehab)? @ -none Was there de-escalation of care discussed even if they declined (Discuss DNR or withdrawal of care, Hospice)? DNR status @ -no What co-morbidities impacted this encounter? (DM, HTN, Smoking, COPD, CAD, Cancer, CVA, ARF, Chemo, Hep., AIDS, mental health diagnosis, sleep apnea, morbid obesity)? @ -none Was patient admitted / discharged? Hospital course, mention meds given and route, prescriptions, significant lab abnormalities, going to OR and other pertinent info. @ - 44 male to ER for chest pain normal labs normal x-ray normal EKG patient can be discharged home Discharge Undiagnosed new problem with uncertain prognosis? @ -no Drug Therapy requiring intensive monitoring for toxicity (Heparin, Nitro, Insulin, Cardizem)? @ -no Were any procedures done? @ -no Diagnosis/symptom? @ -Chest pain Acute, or Chronic, or Acute on Chronic? @ -Acute Uncomplicated (without systemic symptoms) or Complicated (systemic symptoms)? @ -Complicated Side effects of treatment? @ -no Exacerbation, Progression, or Severe Exacerbation? @ -exacerbation Poses a threat to life or bodily function? How? (Chest pain, [place], [place], pneumonia, PE, COPD, DKA, ARF, appy, cholecystitis, CVA, Diverticulitis, Homicidal, Suicidal, threat to staff... and all critical care pts) @ -yes with chest pain Reevaluation #5: Differential Chest Pain: Stable Angina, Unstable Angina, STEMI, NSTEMI Aortic Dissection, Pneumothorax, Musculoskeletal, Esophageal Spasm GERD, Cholecystitis, Pancreatitis, Zoster, this is not meant to be an all-inclusive list. Chest Pain MDM - MDM 44 male to ER for chest pain normal labs normal x-ray normal EKG patient can be discharged home Disposition Clinical Impression: Chest pain Disposition: HOME SELF-CARE Condition: Good Instructions (If sedation given, give patient instructions): Chest Pain (ED) Is patient prescribed a controlled substance at d/c from ED?: No Referrals: Nazario Wilkes DO [Primary Care Provider] - 1-2 days Time of Disposition: 04:00
[2024-11-10 03:29] LABS: INR 0.9 (<1.2); Partial Thromboplastin Time 27.3 sec (22.0-30.0); Prothrombin Time 10.2 sec (10.0-12.5)
[2024-11-10 03:31] LABS: Basophils # (A) 0.07 10*3/uL (0.00-0.10); Basophils % (A) 0.9 %; HGB 15.7 g/dL (13.0-17.0); Lymphocytes # (A) 2.46 10*3/uL (0.90-5.00); Lymphocytes % (A) 33.1 %; MCH 31.5 pg (27.0-32.0); MCHC 35.7 g/dL (32.0-37.0); MCV 88.2 fL (80.0-97.0); Mean Platelet Volume 11.4 fL (9.5-12.2); Monocytes # (A) 0.78 10*3/uL (0.20-1.00); Monocytes % (A) 10.5 %; Neutrophils # (A) 3.81 10*3/uL (1.80-7.70); Neutrophils % (A) 51.2 %; Platelet Count 219 10*3/uL (140-440); RBC 4.99 10*6/uL (4.40-5.60); RDW 12.3 % (11.5-14.5); WBC 7.44 10*3/uL (4.50-10.00)
[2024-11-10 03:35] LABS: ALT 30 U/L (4-49); AST 26 U/L (17-59); African American GFR (CKD) >90 (>60 ml/min/1.73 sqM); Alkaline Phosphatase 60 U/L (38-126); Anion Gap 11 mmol/L; Blood Urea Nitrogen 24 mg/dL (9-20); Calcium 9.4 mg/dL (8.4-10.2); Carbon Dioxide 20 mmol/L (22-30); Chloride 107 mmol/L (98-107); Glucose 103 mg/dL (74-99); Lipase 118 U/L (23-300); Magnesium 1.9 mg/dL (1.6-2.3); Non-African American GFR(CKD) >90 (>60 ml/min/1.73 sqM); Potassium 3.8 mmol/L (3.5-5.1); Sodium 138 mmol/L (137-145); Total Bilirubin 0.7 mg/dL (0.2-1.3); Total Protein 6.8 g/dL (6.3-8.2)
[2024-11-10 03:44] LABS: NT-Pro-B-Type Natriuretic Pept <20 pg/mL
[2024-11-10 04:49] VITALS: BP 118/85; PULSE 56; TEMP 98.4
--- NOTE | 2024-11-10 05:00 | XR ---
EXAM: XR Chest, 2 Views CLINICAL HISTORY: ITS.REASON XR Reason: Chest Pain TECHNIQUE: Frontal and lateral views of the chest. COMPARISON: No relevant prior studies available. FINDINGS: Lungs: No consolidation or mass. Pleural space: No effusion. Heart: cardiomegaly. Bones/joints: No acute findings. IMPRESSION: No acute cardiopulmonary process.
== END 2024-11-10 04:48 | disposition home or self-care (01) ==
LOC: EC 01:57
DX: R07.89 Other chest pain (principal); Z88.0 Allergy status to penicillin
CPT/HCPCS: 36415; 71046; 80053; 83690; 83735; 83880; 84484; 85025; 85610; 85730; 93005; 99285